=== PATIENT | male | born 1990 | race Caucasian/White ===

== ENCOUNTER 2017-04-11 14:00 | Inpatient (IN) | payer OTHER ==
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
--- NOTE | ~2017-04-11 | DS ---
Unit #: [id number] #: [id number] Patient: OPAL GOMEZ [id number] [facility] [address] [place] [address] [id number] MR#: [id number] NAME: OPAL GOMEZ ROOM: [facility] Age: 26 Sex: M Admission Date: 04/11/2017 : 1990 Discharge Date: 04/13/2017 Attending Physician: Bipin Fairbanks M.D. Primary Care Physician: Primary Care Physician No DISCHARGE SUMMARY REASON FOR ADMISSION Suicidal ideation. DIAGNOSTIC STUDIES LABORATORY RESULTS: Unremarkable. HOSPITAL COURSE The patient was admitted to inpatient unit on 04/11/2017 and discharged on 04/13/2017. The patient was treated on the inpatient unit with group therapy, structured milieu, and medication management. The patient was responsive to treatment, requested for discharge. Subsequently, the patient was discharged. At the time of discharge, the patient was not suicidal or homicidal. DISCHARGE MEDICATIONS Vistaril 25 mg t.i.d., Desyrel 50 mg at bedtime for sleep, and Celexa 20 mg daily for depression. DISCHARGE DIAGNOSES Psychiatric: Major depressive disorder, recurrent, severe, F33.2. Secondary diagnosis: Deferred. Medical diagnosis: Asthma. Stressors: Psychosocial stressors. DISCHARGE INSTRUCTIONS The patient to follow up in outpatient clinic as per clinical social worker. CONDITION ON DISCHARGE The patient was pleasant and cooperative. Denied any psychotic symptom or any suicidal ideation. PROGNOSIS Guarded. DIET AND ACTIVITY As tolerated. Dictated by... Bipin Fairbanks M.D. Unit #: [id number] #: [id number] Patient: OPAL GOMEZ SZC/modl TD: 04/13/2017 16:48 JOB #: [id number] DISCHARGE SUMMARY Page 1 of 1 X Bipin Fairbanks MD X DISCHARGE SUMMARY
--- NOTE | ~2017-04-11 | HP ---
Unit #: [id number] #: [id number] Patient: OPAL GOMEZ [id number] [facility] [address] [place] [address] [id number] I MR#: [id number] NAME: OPAL GOMEZ ROOM: P252 Age: 26 Sex: M Admission Date: 04/11/2017 : 1990 Attending Physician: Bipin Fairbanks M.D. Admitting Physician: Bipin Fairbanks M.D. Primary Care Physician: Primary Care Physician No HISTORY AND PHYSICAL HISTORY OF PRESENT ILLNESS Opal is a 26 year old admitted to [address] [place] [address] with depression and verbalizing wanting to hurt himself. PAST MEDICAL HISTORY 1. Asthma. 2. GERD. PAST SURGICAL HISTORY Nothing reported. ALLERGIES No known drug allergies. SOCIAL HISTORY Smokes 1/2 pack per day. Drinks a fifth of liquor on a daily basis and denies illicit drug use. FAMILY HISTORY Medically noncontributory. REVIEW OF SYSTEMS CONSTITUTIONAL: No fever or chills. HEENT: Denies any sore throat, ear pain or runny nose. CARDIOVASCULAR: Denies chest pain, irregular heart rhythm or palpitations. CHEST: Denies shortness of breath or cough. No hemoptysis. GASTROINTESTINAL: Denies nausea, vomiting, diarrhea or chronic constipation. ENDOCRINE: Denies history of increased thirst or urination. No recent significant weight loss or gain. GENITOURINARY: Denies dysuria, frequency, or hematuria. SKIN: Denies any rashes. HEMATOLOGIC: Denies history of increased bleeding or bruising. MUSCULOSKELETAL: Denies any hot, swollen joints. No generalized muscle pain. NEUROLOGIC: Denies problems with vision or speech. No frequent, severe headaches. No numbness, tingling or weakness in any extremities. Denies loss of bladder or bowel control. CURRENT MEDICATIONS 1. Protonix 40 mg daily. 2. Celexa 20 mg daily. 3. Desyrel 50 mg q.h.s. Unit #: [id number] #: [id number] Patient: OPAL GOMEZ 4. Carafate 1 gram q.i.d. 5. Vistaril 25 mg t.i.d. 6. Nicotine patch 7 mg daily. 7. Lorazepam p.r.n. 8. Milk of Magnesia p.r.n. 9. Maalox p.r.n. 10. Tylenol p.r.n. PHYSICAL EXAMINATION GENERAL: Alert, well-nourished, in no apparent distress. VITAL SIGNS: Blood pressure 132/86, heart rate 80, respirations 16, temperature 98.6. WEIGHT: 164. HEIGHT: 5 feet 9 inches. SKIN: Warm and dry without rash or lesion. HEENT: Normocephalic. TMs not viewed. Oral and nasal passages clear. Conjunctivae clear. PERRLA. EOMs intact. NECK: Supple without lymphadenopathy or thyromegaly. HEART: Regular rate and rhythm without murmur. LUNGS: Clear. ABDOMEN: Soft, nontender. : Not done. EXTREMITIES: No evidence of cyanosis, clubbing or edema. Moves all without focal deficit. NEUROLOGICAL: Grossly within normal limits. Cranial Nerves: II: Visual cesar are intact. III, IV AND : Extraocular movements are intact. Pupils are equal, round and reactive to light. V: Facial sensation is grossly normal. VII: Facial movements and expression are normal. VIII: Auditory acuity grossly intact. IX, X: Uvula is midline. Phonation is normal. XI: Patient shrugs shoulders and turns head normally. XII: Tongue protrudes in the midline. Sensory and Motor Function: Sensory and motor sensation is grossly normal. Motor: moves all extremities well. Coordination: Gait is normal. Deep Tendon Reflexes: Intact. IMPRESSION Psychiatric admission. RECOMMENDATIONS PSYCHIATRIC: Per psychiatrist. MEDICAL: See no contraindication to participate in facility's activities. MEDICAL PROGNOSIS Good. MEDICAL CONDITION Stable. Dictated by... Moriah Moya P.A.-C. for Preeti Stallings/cecilia Unit #: [id number] #: [id number] Patient: OPAL GOMEZ TD: 04/12/2017 23:15 JOB #: [id number] HISTORY AND PHYSICAL Page 1 of 1 X Moriah Moya HISTORY AND PHYSICAL
--- NOTE | ~2017-04-11 | PN ---
Unit #: [id number] #: [id number] Patient: OPAL GOMEZ [id number] [facility] [address] [place] [address] [id number] I MR#: [id number] NAME: OPAL GOMEZ ROOM: P252 Age: 26 Sex: M Admission Date: 04/11/2017 : 1990 Attending Physician: Bipin Fairbanks M.D. Admitting Physician: Bipin Fairbanks M.D. Primary Care Physician: Primary Care Physician Chastity SILVA PROGRESS NOTES DATE OF SERVICE: 04/12/2017 DISCUSSION Mr. Abreu is a 26-year-old male, seen on 04/12/2017. The patient continues to look sad, depressed, anxious, withdrawn, isolative, flat affect, sad, dysphoric mood. REVIEW OF SYSTEMS Complete review of systems unremarkable. MENTAL STATUS EXAMINATION General appearance; the patient dressed casually. Attention span and concentration, fair. Oriented in place and person. Mood and affect, labile. Speech, monotone. Thought process, concrete. The patient denied any thoughts of harming self or others. Recent and remote memory, poor. Insight and judgment, poor. DIAGNOSIS Major depressive disorder, recurrent. ASSESSMENT/PLAN Advised to continue with current combination of medication. The patient is on Celexa and Desyrel combination, also taking Carafate, Vistaril p.r.n., and Protonix. Dictated by... Bipin Fairbanks M.D. SZC/pumal TD: 04/13/2017 22:55 JOB #: [id number] Unit #: [id number] #: [id number] Patient: OPAL GOMEZ PROGRESS NOTES Page 1 of 1 X Bipin Fairbanks MD PROGRESS NOTE
[2017-04-12 09:30] LABS: BASOPHIL% 0.5 % (0-2.5); EOSINOPHIL# 0.2 X10e3 (0-0.7); HEMATOCRIT 43.6 % (38.0-50.0); HEMOGLOBIN 15.1 gm/dL (13.0-16.0); LYMPHOCYTE# 2.7 X10e3 (1.0-3.5); LYMPHOCYTE% 36.2 % (17.0-45.0); MEAN CORPUSCULAR HEMOGLOBIN 30.5 PG (28-34); MEAN CORPUSCULAR HGB CONC 34.7 g/dL (30-36); MEAN PLATELET VOLUME 8.7 FL (6.5-11.5); MONOCYTE# 0.5 X10e3 (0-1.0); MONOCYTE% 6.1 % (3.0-12.0); NEUTROPHIL% 54.2 % (40-75); PLATELET COUNT 201 X10e3 (140-420); RED BLOOD COUNT 4.95 X10e (3.90-5.60); RED CELL DISTRIBUTION WIDTH 13.9 % (11.0-15.5); WHITE BLOOD COUNT 7.4 X10e3 (4.0-10.5)
[2017-04-12 09:31] LABS: DIFF IND NO
[2017-04-12 09:58] LABS: ALBUMIN SERUM 3.7 g/dL (3.5-5.0); BILIRUBIN,TOTAL 1.4 mg/dL (0.2-2.0); CALCIUM SERUM 8.9 mg/dL (8.4-10.2); POTASSIUM 4.2 mmol/L (3.5-5.1); PROTEIN TOTAL SERUM 6.5 g/dL (6.0-8.3)
== END 2017-04-13 15:48 | disposition home or self-care (01) | DRG 885 ==
LOC: P2L 19:45
PROVIDERS: Psychiatry & Neurology Psychiatry
DX: F33.2 Major depressive disorder, recurrent severe without psychotic features (principal); R45.851 Suicidal ideations; J45.909 Unspecified asthma, uncomplicated; Z62.810 Personal history of physical and sexual abuse in childhood; K21.9 Gastro-esophageal reflux disease without esophagitis; F17.210 Nicotine dependence, cigarettes, uncomplicated
CPT/HCPCS: 80053; 85025